=== PATIENT | male | born 1990 | race Caucasian/White ===

== ENCOUNTER 2024-12-26 20:27 | Emergency (ER) | payer SELFPAY ==
[2024-12-26 20:30] VITALS: BMI 17.6
[2024-12-26 20:46] VITALS: BP 139/82
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
[2024-12-26 21:21] VITALS: BP 123/86
== END 2024-12-26 22:06 | disposition home or self-care (01) ==
LOC: EMR 20:27
PROVIDERS: EMERGENCY PHYSICIAN Emergency Medicine
DX: F41.9 Anxiety disorder, unspecified (principal); Z62.810 Personal history of physical and sexual abuse in childhood
CPT/HCPCS: 99283; 93005